=== PATIENT | female | born 1975 | race Caucasian/White ===

== ENCOUNTER → 2017-01-25 | Outpatient (CLI) | payer BC | LOC: LAB 08:49 | DX: R10.33 Periumbilical pain (principal) ==

== ENCOUNTER → 2017-03-24 | Outpatient (REF) | LOC: LAB 11:54 | DX: Z01.89 Encounter for other specified special examinations (principal) ==

== ENCOUNTER → 2017-10-24 | Outpatient (CLI) | payer BC | LOC: MAMMO 10:45 → RAD 10:45 → MAMMO 10:46 | DX: Z12.31 Encounter for screening mammogram for malignant neoplasm of breast (principal); Z13.220 Encounter for screening for lipoid disorders; R53.81 Other malaise; J45.990 Exercise induced bronchospasm ==

== ENCOUNTER → 2018-01-23 | Outpatient (CLI) | payer BC | LOC: RAD 16:01 | DX: R06.2 Wheezing (principal) ==

== ENCOUNTER → 2018-01-26 | Outpatient (CLI) | payer BC | LOC: LAB 15:41 | DX: J11.1 Influenza due to unidentified influenza virus with other respiratory manifestations (principal); Z88.1 Allergy status to other antibiotic agents; Z88.2 Allergy status to sulfonamides ==

== ENCOUNTER → 2018-04-17 | Outpatient (CLI) | payer BC ==
[~2018-04-17] VITALS: Ht 177.8 cm; Wt 77.3 kg
[~2018-04-17] MED LIST: LITHIUM CARB300 MG PO; WELLBUTRIN SR200 M1 PO
[2018-04-17 14:45] VITALS: BP 110/72
== END ==
LOC: AMSURD 14:40
DX: R00.2 Palpitations (principal)

== ENCOUNTER 2018-07-08 11:22 | Emergency (ER) | payer BC ==
[~2018-07-08 11:22] MED LIST changes: +WELLBUTRIN SR100 M4 PO; -WELLBUTRIN SR200 M1 PO
[2018-07-08] MEDS ORDERED: LIBRIUM 25M25 MG/CAP PO (11:42)
[2018-07-08 12:12] LABS: EOS # 0.1 (0.04-0.40); EOS % 2.5 % (1.0-5.0); HEMATOCRIT 32.5 % (37.0-47.0); HEMOGLOBIN 10.5 g/dL (12.5-16.0); MEAN CELL VOLUME 93 fl (78-100); MEAN CORPUSCULAR HEMOGLOBIN 30 pg (27-31); MEAN CORPUSCULAR HGB CONC 32 g/dL (33-37); MEAN PLATELET VOLUME 10.6 fl (7.4-10.4); MONO # 0.4 (0.20-0.80); NEU # 2.6 (1.40-6.50); PLATELET COUNT 251 K/mm3 (130-400); RED CELL DISTRIBUTION WIDTH 12.1 % (11.5-14.5); WHITE BLOOD COUNT 5.2 K/mm3 (4.8-10.8)
[2018-07-08 12:28] LABS: CALCIUM 8.9 mg/dL (8.4-10.2); POTASSIUM 3.8 mmol/L (3.6-5.0); TOTAL BILIRUBIN 0.5 mg/dL (0.2-1.3)
[2018-07-08 12:56] LABS: URINE APPEARANCE CLOUDY; URINE BILIRUBIN NEGATIVE (NEGATIVE); URINE BLOOD TRACE (NEGATIVE); URINE COLOR YELLOW; URINE GLUCOSE NEGATIVE (NEGATIVE); URINE KETONE NEGATIVE (NEGATIVE); URINE LEUKOCYTE ESTERASE NEGATIVE (NEGATIVE); URINE MUCUS PRESENT (NOT PRESENT); URINE NITRATE NEGATIVE (NEGATIVE); URINE PROTEIN(semi-quant) TRACE mg/dL (NEGATIVE); URINE UROBILINOGEN NORMAL (NORMAL)
[2018-07-08] MEDS ORDERED: COLACE100 M1 PO (13:47)
[2018-07-08] MEDS ORDERED: FERROUS SU325 MG/TAB PO (13:47)
[2018-07-08] MEDS ORDERED: MACROBID 100 M100 MG PO (14:02)
[2018-07-08 14:20] VITALS: BP 113/62
== END 2018-07-08 14:20 | disposition home or self-care (01) ==
LOC: ED 11:22
PROVIDERS: Physician Assistant
DX: I49.3 Ventricular premature depolarization (principal); R00.2 Palpitations; N39.0 Urinary tract infection, site not specified; F41.9 Anxiety disorder, unspecified; D64.9 Anemia, unspecified; N92.0 Excessive and frequent menstruation with regular cycle; Z79.899 Other long term (current) drug therapy; Z88.1 Allergy status to other antibiotic agents; Z88.2 Allergy status to sulfonamides

== ENCOUNTER → 2018-08-24 | Outpatient (CLI) | payer BC ==
[~2018-08-24] MED LIST changes: +COLACE100 M1 PO; +FERROUS SU325 MG/TAB PO; +LIBRIUM 25M25 MG/CAP PO; +MACROBID 100 M100 MG PO
[2018-08-24 12:47] LABS: EOS # 0.1 (0.04-0.40); EOS % 1.3 % (1.0-5.0); HEMATOCRIT 36.7 % (37.0-47.0); HEMOGLOBIN 11.9 g/dL (12.5-16.0); MEAN CELL VOLUME 93 fl (78-100); MEAN CORPUSCULAR HEMOGLOBIN 30 pg (27-31); MEAN CORPUSCULAR HGB CONC 32 g/dL (33-37); MEAN PLATELET VOLUME 10.8 fl (7.4-10.4); MONO # 0.5 (0.20-0.80); NEU # 7.6 (1.40-6.50); PLATELET COUNT 248 K/mm3 (130-400); RED BLOOD COUNT 3.94 M/mm3 (4.10-5.30); RED CELL DISTRIBUTION WIDTH 13.5 % (11.5-14.5); WHITE BLOOD COUNT 10.4 K/mm3 (4.8-10.8)
[2018-08-24 12:59] LABS: ALBUMIN 4.4 g/dL (3.5-5.0); CALCIUM 9.3 mg/dL (8.4-10.2); POTASSIUM 4.7 mmol/L (3.6-5.0); TOTAL BILIRUBIN 0.8 mg/dL (0.2-1.3); TOTAL PROTEIN 7.7 g/dL (6.3-8.2)
[2018-08-24 13:00] LABS: PH-URINE 6.5 (5.0 - 8.0); URINE APPEARANCE CLOUDY; URINE COLOR ORANGE
[2018-08-24 13:01] LABS: URINE WBC >50 /hpf (0-3)
== END ==
LOC: LAB 12:17
PROVIDERS: Family Medicine
DX: Z01.419 Encounter for gynecological examination (general) (routine) without abnormal findings (principal); N39.0 Urinary tract infection, site not specified

== ENCOUNTER → 2018-10-03 | Outpatient (CLI) | payer BC | LOC: RAD 17:37 | DX: I08.8 Other rheumatic multiple valve diseases (principal) ==

== ENCOUNTER → 2018-10-08 | Outpatient (CLI) | payer BC | LOC: RAD 14:46 | DX: R05 Cough (principal) ==

== ENCOUNTER 2019-03-24 10:11 | Emergency (ER) | payer BC ==
[~2019-03-24] VITALS: Ht 177.8 cm; Wt 76.4 kg
[2019-03-24 10:48] LABS: EOS # 0.1 (0.04-0.40); EOS % 0.7 % (1.0-5.0); HEMATOCRIT 38.2 % (37.0-47.0); HEMOGLOBIN 12.4 g/dL (12.5-16.0); LYMPH# 1.6 (1.50-4.00); MEAN CELL VOLUME 93 fl (78-100); MEAN CORPUSCULAR HEMOGLOBIN 30 pg (27-31); MEAN CORPUSCULAR HGB CONC 33 g/dL (33-37); MEAN PLATELET VOLUME 10.3 fl (7.4-10.4); MONO # 0.4 (0.20-0.80); NEU # 6.1 (1.40-6.50); PLATELET COUNT 257 K/mm3 (130-400); RED CELL DISTRIBUTION WIDTH 11.8 % (11.5-14.5); WHITE BLOOD COUNT 8.2 K/mm3 (4.8-10.8)
[2019-03-24 10:51] LABS: URINE APPEARANCE CLOUDY; URINE BILIRUBIN NEGATIVE (NEGATIVE); URINE BLOOD 250 ery/uL (NEGATIVE); URINE COLOR BROWN; URINE GLUCOSE NEGATIVE (NEGATIVE); URINE KETONE NEGATIVE (NEGATIVE); URINE NITRATE NEGATIVE (NEGATIVE); URINE PROTEIN(semi-quant) 2+ mg/dL (NEGATIVE); URINE UROBILINOGEN NORMAL (NORMAL)
[2019-03-24 10:52] LABS: URINE LEUKOCYTE ESTERASE TRACE (NEGATIVE); URINE MUCUS PRESENT (NOT PRESENT)
[2019-03-24 11:09] LABS: ALBUMIN 4.2 g/dL (3.5-5.0); CALCIUM 9.4 mg/dL (8.3-10.5); TOTAL BILIRUBIN 0.4 mg/dL (0.2-1.2); TOTAL PROTEIN 7.7 g/dL (6.4-8.3)
[2019-03-24 12:37] VITALS: BP 113/63
[2019-03-24] MEDS ORDERED: ADDERALL 30 MG30 MG PO ×2 (12:51)
[2019-03-24] MEDS ORDERED: FEXOFENADINE HY60 MG PO (12:51)
== END 2019-03-24 13:00 | disposition short-term general hospital (02) ==
LOC: ED 10:11
PROVIDERS: Nurse Practitioner Primary Care
DX: N20.0 Calculus of kidney (principal); F41.9 Anxiety disorder, unspecified; F32.9 Major depressive disorder, single episode, unspecified; Z88.2 Allergy status to sulfonamides; Z88.1 Allergy status to other antibiotic agents
CPT/HCPCS: J1885; J2405; J7030; Q9967

== ENCOUNTER → 2019-10-02 | Outpatient (CLI) | payer BC ==
[~2019-10-02] MED LIST changes: +ADDERALL 30 MG30 MG PO; +FEXOFENADINE HY60 MG PO
[2019-10-02 13:32] LABS: POTASSIUM 4.2 mmol/L (3.5-5.1)
[2019-10-02 13:33] LABS: CALCIUM 9.8 mg/dL (8.3-10.5)
== END ==
LOC: LAB 13:13
PROVIDERS: Physician Assistant
DX: M10.9 Gout, unspecified (principal)

== ENCOUNTER → 2019-10-13 | Outpatient (CLI) | payer BC | LOC: MAMMO 11:45 | DX: Z12.31 Encounter for screening mammogram for malignant neoplasm of breast (principal) ==

== ENCOUNTER → 2020-05-25 | Outpatient (CLI) | payer BC ==
[2020-05-25 11:30] LABS: EOS # 0.1 (0.04-0.40); EOS % 1.9 % (1.0-5.0); HEMATOCRIT 37.6 % (37.0-47.0); HEMOGLOBIN 12.6 g/dL (12.5-16.0); LYMPH# 2.4 (1.50-4.00); MEAN CELL VOLUME 93 fl (78-100); MEAN CORPUSCULAR HEMOGLOBIN 31 pg (27-31); MEAN CORPUSCULAR HGB CONC 34 g/dL (33-37); MEAN PLATELET VOLUME 10.1 fl (7.4-10.4); MONO # 0.6 (0.20-0.80); NEU # 3.8 (1.40-6.50); PLATELET COUNT 230 K/mm3 (130-400); RED BLOOD COUNT 4.05 M/mm3 (4.10-5.30)
[2020-05-25 11:39] LABS: POTASSIUM 4.4 mmol/L (3.5-5.1)
[2020-05-25 11:40] LABS: ALBUMIN 4.4 g/dL (3.5-5.0)
[2020-05-25 11:41] LABS: CALCIUM 9.5 mg/dL (8.3-10.5)
[2020-05-25 11:42] LABS: TOTAL PROTEIN 7.9 g/dL (6.4-8.3)
[2020-05-25 11:44] LABS: TOTAL BILIRUBIN 0.6 mg/dL (0.2-1.2)
== END ==
LOC: LAB 11:18
PROVIDERS: Family Medicine
DX: Z00.00 Encounter for general adult medical examination without abnormal findings (principal); E78.5 Hyperlipidemia, unspecified

== ENCOUNTER → 2020-08-26 | Outpatient (CLI) | payer BC | LOC: LAB 08:56 | DX: N30.01 Acute cystitis with hematuria (principal) ==

== ENCOUNTER → 2020-08-27 | Outpatient (CLI) | payer BC | LOC: LAB 09:38 | DX: R05 Cough (principal); R11.10 Vomiting, unspecified; R19.7 Diarrhea, unspecified; R53.83 Other fatigue; Z20.828 Contact with and (suspected) exposure to other viral communicable diseases ==

== ENCOUNTER → 2020-10-07 | Outpatient (CLI) | payer BC | LOC: LAB 12:24 | DX: R05 Cough (principal); R51.9 Headache, unspecified; R09.81 Nasal congestion; R09.89 Other specified symptoms and signs involving the circulatory and respiratory systems; R19.7 Diarrhea, unspecified; Z20.828 Contact with and (suspected) exposure to other viral communicable diseases ==

== ENCOUNTER → 2020-10-20 | Outpatient (CLI) | payer BC | LOC: LAB 13:53 | DX: J02.9 Acute pharyngitis, unspecified (principal); Z20.828 Contact with and (suspected) exposure to other viral communicable diseases ==

== ENCOUNTER → 2020-11-10 | Outpatient (CLI) | payer BC ==
[2020-11-10 13:56] LABS: URINE APPEARANCE CLEAR; URINE BILIRUBIN 1+ (NEGATIVE); URINE BLOOD TRACE (NEGATIVE); URINE COLOR YELLOW; URINE GLUCOSE NEGATIVE (NEGATIVE); URINE KETONE NEGATIVE (NEGATIVE); URINE LEUKOCYTE ESTERASE 1+ (NEGATIVE); URINE NITRATE POSITIVE (NEGATIVE); URINE PROTEIN(semi-quant) NEGATIVE (NEGATIVE); URINE UROBILINOGEN NORMAL (NORMAL); URINE WBC 16-30 /hpf (0-3)
[2020-11-10 13:57] LABS: URINE MUCUS PRESENT (NOT PRESENT)
== END ==
LOC: LAB 13:15
PROVIDERS: Nurse Practitioner
DX: N30.01 Acute cystitis with hematuria (principal)

== ENCOUNTER → 2020-11-16 | Outpatient (CLI) | payer BC ==
[2020-11-16 17:46] LABS: URINE APPEARANCE CLEAR; URINE BILIRUBIN NEGATIVE (NEGATIVE); URINE BLOOD NEGATIVE (NEGATIVE); URINE COLOR YELLOW; URINE GLUCOSE NEGATIVE (NEGATIVE); URINE KETONE NEGATIVE (NEGATIVE); URINE LEUKOCYTE ESTERASE NEGATIVE (NEGATIVE); URINE NITRATE NEGATIVE (NEGATIVE); URINE PROTEIN(semi-quant) NEGATIVE (NEGATIVE); URINE UROBILINOGEN NORMAL (NORMAL)
[2020-11-16 17:47] LABS: URINE MUCUS PRESENT (NOT PRESENT)
== END ==
LOC: LAB 17:12
PROVIDERS: Family Medicine
DX: N39.0 Urinary tract infection, site not specified (principal)

== ENCOUNTER → 2020-12-31 | Outpatient (CLI) | payer BC ==
[~2020-12-31] MED LIST changes: +CYCLOBENZAPRINE10 M1 PO; +DESYREL 100MG100 MG PO; +FLUTICASON0.05 MG/AC NS; +MELOXICAM15 MG PO; +SUMATRIPTAN SUC25 M2 PO; +VITAMIN D21250 MCG PO
== END ==
LOC: MAMMO 12-10 10:00
DX: Z12.31 Encounter for screening mammogram for malignant neoplasm of breast (principal)

== ENCOUNTER → 2021-01-17 | Outpatient (CLI) | payer BC ==
[2021-01-17 14:12] LABS: EOS # 0.1 (0.04-0.40); EOS % 1.8 % (1.0-5.0); HEMATOCRIT 39.3 % (37.0-47.0); HEMOGLOBIN 12.6 g/dL (12.5-16.0); LYMPH# 2.6 (1.50-4.00); MEAN CELL VOLUME 94 fl (78-100); MEAN CORPUSCULAR HEMOGLOBIN 30 pg (27-31); MEAN CORPUSCULAR HGB CONC 32 g/dL (33-37); MEAN PLATELET VOLUME 10.5 fl (7.4-10.4); MONO # 0.4 (0.20-0.80); PLATELET COUNT 234 K/mm3 (130-400); RED BLOOD COUNT 4.17 M/mm3 (4.10-5.30); RED CELL DISTRIBUTION WIDTH 11.7 % (11.5-14.5); WHITE BLOOD COUNT 7.2 K/mm3 (4.8-10.8)
[2021-01-17 14:24] LABS: ALBUMIN 4.3 g/dL (3.5-5.0); POTASSIUM 4.6 mmol/L (3.5-5.1)
[2021-01-17 14:25] LABS: CALCIUM 9.1 mg/dL (8.3-10.5)
[2021-01-17 14:27] LABS: TOTAL PROTEIN 7.8 g/dL (6.4-8.3)
[2021-01-17 14:28] LABS: TOTAL BILIRUBIN 0.5 mg/dL (0.2-1.2)
[2021-01-17 15:17] LABS: ERYTHROCYTE SEDIMENTATION RATE 8 mm/hr (0-20)
[2021-01-18 00:26] LABS: COMPLEMENT C3 100 mg/dL (83-193); COMPLEMENT-C4 18 mg/dL (15-57)
[2021-01-18 11:10] LABS: ANA SCREEN with REFLEX Negative (Negative)
== END ==
LOC: LAB 13:47
PROVIDERS: Family Medicine
DX: R53.82 Chronic fatigue, unspecified (principal)

== ENCOUNTER 2021-02-27 01:47 | Emergency (ER) | payer BC ==
[~2021-02-27 01:47] MED LIST changes: -CYCLOBENZAPRINE10 M1 PO; -DESYREL 100MG100 MG PO; -FLUTICASON0.05 MG/AC NS; -MELOXICAM15 MG PO; -SUMATRIPTAN SUC25 M2 PO; -VITAMIN D21250 MCG PO
[2021-02-27] MEDS ORDERED: CYCLOBENZAPRINE10 M1 PO (02:00)
[2021-02-27] MEDS ORDERED: SUMATRIPTAN SUC25 M2 PO (02:00)
[2021-02-27] MEDS ORDERED: FLUTICASON0.05 MG/AC NS (02:00)
[2021-02-27] MEDS ORDERED: MELOXICAM15 MG PO (02:01)
[2021-02-27] MEDS ORDERED: DESYREL 100MG100 MG PO (02:01)
[2021-02-27] MEDS ORDERED: VITAMIN D21250 MCG PO (02:01)
[2021-02-27 03:14] LABS: BASO # 0.03 (0.02-0.10); EOS # 0.05 (0.04-0.40); EOS % 0.6 % (1.0-5.0); HEMATOCRIT 32.9 % (37.0-47.0); HEMOGLOBIN 11.3 g/dL (12.5-16.0); LYMPH# 1.77 (1.50-4.00); MEAN CELL VOLUME 92 fl (78-100); MEAN CORPUSCULAR HEMOGLOBIN 32 pg (27-31); MEAN CORPUSCULAR HGB CONC 34 g/dL (33-37); MEAN PLATELET VOLUME 10.5 fl (7.4-10.4); MONO # 0.45 (0.20-0.80); NEU # 5.77 (1.40-6.50); PLATELET COUNT 219 K/mm3 (130-400); RED BLOOD COUNT 3.59 M/mm3 (4.10-5.30); WHITE BLOOD COUNT 8.1 K/mm3 (4.8-10.8)
[2021-02-27 03:21] LABS: POTASSIUM 3.9 mmol/L (3.5-5.1)
[2021-02-27 03:24] LABS: TOTAL PROTEIN 7.3 g/dL (6.4-8.3)
[2021-02-27 03:26] LABS: TOTAL BILIRUBIN 0.2 mg/dL (0.2-1.2)
[2021-02-27 03:32] LABS: URINE APPEARANCE HAZY; URINE COLOR YELLOW
[2021-02-27 03:33] LABS: URINE BILIRUBIN NEGATIVE (NEGATIVE); URINE BLOOD 50 ery/uL (NEGATIVE); URINE GLUCOSE NEGATIVE (NEGATIVE); URINE KETONE 1+ (NEGATIVE); URINE LEUKOCYTE ESTERASE TRACE (NEGATIVE); URINE NITRATE NEGATIVE (NEGATIVE); URINE PROTEIN(semi-quant) NEGATIVE (NEGATIVE); URINE UROBILINOGEN NORMAL (NORMAL)
[2021-02-27 03:34] LABS: URINE MUCUS PRESENT (NOT PRESENT)
[2021-02-27 04:04] VITALS: BP 109/59
== END 2021-02-27 04:04 | disposition home or self-care (01) ==
LOC: ED 01:47
PROVIDERS: Family Medicine
DX: F12.10 Cannabis abuse, uncomplicated (principal); F10.10 Alcohol abuse, uncomplicated; F41.9 Anxiety disorder, unspecified; F32.9 Major depressive disorder, single episode, unspecified; F90.9 Attention-deficit hyperactivity disorder, unspecified type
CPT/HCPCS: J7030

== ENCOUNTER → 2021-03-28 | Outpatient (CLI) | payer BC ==
[2021-02-27 04:04] VITALS: BP 109/59
[~2021-03-28] MED LIST changes: +CYCLOBENZAPRINE10 M1 PO; +DESYREL 100MG100 MG PO; +FLUTICASON0.05 MG/AC NS; +MELOXICAM15 MG PO; +SUMATRIPTAN SUC25 M2 PO; +VITAMIN D21250 MCG PO
[2021-03-28 09:48] LABS: BASO # 0.03 (0.02-0.10); EOS # 0.16 (0.04-0.40); EOS % 2.9 % (1.0-5.0); HEMATOCRIT 36.6 % (37.0-47.0); HEMOGLOBIN 12.2 g/dL (12.5-16.0); LYMPH# 2.04 (1.50-4.00); MEAN CELL VOLUME 92 fl (78-100); MEAN CORPUSCULAR HEMOGLOBIN 31 pg (27-31); MEAN CORPUSCULAR HGB CONC 33 g/dL (33-37); MEAN PLATELET VOLUME 10.3 fl (7.4-10.4); MONO # 0.32 (0.20-0.80); NEU # 3.01 (1.40-6.50); PLATELET COUNT 214 K/mm3 (130-400); RED BLOOD COUNT 3.96 M/mm3 (4.10-5.30); RED CELL DISTRIBUTION WIDTH 12.1 % (11.5-14.5); WHITE BLOOD COUNT 5.6 K/mm3 (4.8-10.8)
[2021-03-28 09:58] LABS: ALBUMIN 4.2 g/dL (3.5-5.0)
[2021-03-28 10:00] LABS: TOTAL PROTEIN 7.6 g/dL (6.4-8.3)
[2021-03-28 10:02] LABS: TOTAL BILIRUBIN 0.9 mg/dL (0.2-1.2)
== END ==
LOC: LAB 09:35
PROVIDERS: Family Medicine
DX: Z00.00 Encounter for general adult medical examination without abnormal findings (principal); E78.5 Hyperlipidemia, unspecified; E55.9 Vitamin D deficiency, unspecified; M10.9 Gout, unspecified; R53.83 Other fatigue

== ENCOUNTER 2021-11-16 17:33 | Emergency (ER) | payer BC ==
[~2021-11-16] VITALS: Ht 177.8 cm; Wt 82.7 kg
[2021-11-16 18:35] LABS: BASO # 0.03 K/mm3 (0.02-0.10); EOS # 0.18 K/mm3 (0.04-0.40); EOS % 2.3 % (1.0-5.0); HEMATOCRIT 34.5 % (37.0-47.0); HEMOGLOBIN 11.6 g/dL (12.5-16.0); LYMPH# 2.19 K/mm3 (1.50-4.00); MEAN CELL VOLUME 93 fl (78-100); MEAN CORPUSCULAR HEMOGLOBIN 31 pg (27-31); MEAN CORPUSCULAR HGB CONC 34 g/dL (33-37); MONO # 0.42 K/mm3 (0.20-0.80); NEU # 4.99 K/mm3 (1.40-6.50); PLATELET COUNT 233 K/mm3 (130-400); RED BLOOD COUNT 3.72 M/mm3 (4.10-5.30); RED CELL DISTRIBUTION WIDTH 12.2 % (11.5-14.5); WHITE BLOOD COUNT 7.8 K/mm3 (4.8-10.8)
[2021-11-16 18:46] LABS: ALBUMIN 4.1 g/dL (3.5-5.0); POTASSIUM 3.7 mmol/L (3.5-5.1)
[2021-11-16 18:47] LABS: CALCIUM 9.6 mg/dL (8.3-10.5)
[2021-11-16 18:48] LABS: TOTAL PROTEIN 7.3 g/dL (6.4-8.3)
[2021-11-16 18:50] LABS: TOTAL BILIRUBIN 0.6 mg/dL (0.2-1.2)
[2021-11-16 18:55] LABS: MAGNESIUM 1.77 mg/dL (1.60-2.60)
[2021-11-16 19:36] VITALS: BP 132/86
== END 2021-11-16 19:36 | disposition home or self-care (01) ==
LOC: ED 17:33
PROVIDERS: Physician Assistant
DX: I10 Essential (primary) hypertension (principal); M79.89 Other specified soft tissue disorders; F90.9 Attention-deficit hyperactivity disorder, unspecified type; J45.909 Unspecified asthma, uncomplicated; F41.1 Generalized anxiety disorder; F43.10 Post-traumatic stress disorder, unspecified; F32.9 Major depressive disorder, single episode, unspecified; Z86.16 Personal history of COVID-19; Z79.899 Other long term (current) drug therapy

== ENCOUNTER → 2022-02-03 | Outpatient (CLI) | payer BC | LOC: MAMMO 09:00 | DX: Z12.31 Encounter for screening mammogram for malignant neoplasm of breast (principal) ==

== ENCOUNTER → 2022-03-22 | Outpatient (CLI) | payer BC ==
[2022-03-22 13:32] LABS: URINE APPEARANCE CLEAR; URINE COLOR YELLOW
[2022-03-22 13:33] LABS: URINE BILIRUBIN NEGATIVE (NEGATIVE); URINE BLOOD NEGATIVE (NEGATIVE); URINE GLUCOSE NEGATIVE (NEGATIVE); URINE KETONE NEGATIVE (NEGATIVE); URINE LEUKOCYTE ESTERASE TRACE (NEGATIVE); URINE NITRATE POSITIVE (NEGATIVE); URINE PROTEIN(semi-quant) 1+ (NEGATIVE); URINE UROBILINOGEN NORMAL (NORMAL)
== END ==
LOC: LAB 13:08
PROVIDERS: Family Medicine
DX: N39.0 Urinary tract infection, site not specified (principal)

== ENCOUNTER → 2022-04-07 | Outpatient (CLI) | payer BC ==
[2022-04-07 10:30] LABS: URINE WBC 0 /hpf (0-3)
[2022-04-07 11:18] LABS: BASO # 0.05 K/mm3 (0.02-0.10); EOS # 0.21 K/mm3 (0.04-0.40); EOS % 2.7 % (1.0-5.0); HEMOGLOBIN 12.1 g/dL (12.5-16.0); LYMPH# 2.69 K/mm3 (1.50-4.00); MEAN CELL VOLUME 94 fl (78-100); MEAN CORPUSCULAR HEMOGLOBIN 31 pg (27-31); MEAN CORPUSCULAR HGB CONC 33 g/dL (33-37); MEAN PLATELET VOLUME 9.9 fl (7.4-10.4); MONO # 0.55 K/mm3 (0.20-0.80); NEU # 4.39 K/mm3 (1.40-6.50); PLATELET COUNT 261 K/mm3 (130-400); RED BLOOD COUNT 3.94 M/mm3 (4.10-5.30); WHITE BLOOD COUNT 7.9 K/mm3 (4.8-10.8)
[2022-04-07 11:31] LABS: ALBUMIN 4.3 g/dL (3.5-5.0); POTASSIUM 4.2 mmol/L (3.5-5.1)
[2022-04-07 11:32] LABS: CALCIUM 9.2 mg/dL (8.3-10.5)
[2022-04-07 11:34] LABS: TOTAL PROTEIN 7.6 g/dL (6.4-8.3)
[2022-04-07 11:35] LABS: TOTAL BILIRUBIN 0.7 mg/dL (0.2-1.2)
[2022-04-07 11:49] LABS: URINE APPEARANCE CLEAR; URINE BILIRUBIN NEGATIVE (NEGATIVE); URINE BLOOD NEGATIVE (NEGATIVE); URINE COLOR YELLOW; URINE GLUCOSE NEGATIVE (NEGATIVE); URINE KETONE NEGATIVE (NEGATIVE); URINE LEUKOCYTE ESTERASE NEGATIVE (NEGATIVE); URINE NITRATE NEGATIVE (NEGATIVE); URINE PROTEIN(semi-quant) NEGATIVE (NEGATIVE); URINE UROBILINOGEN NORMAL (NORMAL)
== END ==
LOC: LAB 10:00
PROVIDERS: Family Medicine
DX: N39.0 Urinary tract infection, site not specified (principal)

== ENCOUNTER → 2022-06-12 | Outpatient (CLI) | payer BC ==
[2022-06-12 13:17] LABS: BASO # 0.03 K/mm3 (0.02-0.10); EOS # 0.15 K/mm3 (0.04-0.40); EOS % 1.6 % (1.0-5.0); HEMATOCRIT 36.8 % (37.0-47.0); HEMOGLOBIN 12.1 g/dL (12.5-16.0); LYMPH# 2.12 K/mm3 (1.50-4.00); MEAN CELL VOLUME 94 fl (78-100); MEAN CORPUSCULAR HEMOGLOBIN 31 pg (27-31); MEAN CORPUSCULAR HGB CONC 33 g/dL (33-37); MEAN PLATELET VOLUME 9.9 fl (7.4-10.4); NEU # 6.32 K/mm3 (1.40-6.50); PLATELET COUNT 238 K/mm3 (130-400); RED CELL DISTRIBUTION WIDTH 11.7 % (11.5-14.5); WHITE BLOOD COUNT 9.1 K/mm3 (4.8-10.8)
[2022-06-12 13:24] LABS: ALBUMIN 4.2 g/dL (3.5-5.0); POTASSIUM 3.9 mmol/L (3.5-5.1)
[2022-06-12 13:25] LABS: CALCIUM 9.2 mg/dL (8.3-10.5)
[2022-06-12 13:26] LABS: TOTAL PROTEIN 7.3 g/dL (6.4-8.3)
[2022-06-12 13:28] LABS: TOTAL BILIRUBIN 0.6 mg/dL (0.2-1.2)
[2022-06-12 13:35] LABS: URINE APPEARANCE HAZY; URINE BILIRUBIN NEGATIVE (NEGATIVE); URINE BLOOD 250 ery/uL (NEGATIVE); URINE COLOR DARK YELLOW; URINE GLUCOSE NEGATIVE (NEGATIVE); URINE KETONE NEGATIVE (NEGATIVE); URINE LEUKOCYTE ESTERASE NEGATIVE (NEGATIVE); URINE NITRATE NEGATIVE (NEGATIVE); URINE PROTEIN(semi-quant) TRACE (NEGATIVE); URINE UROBILINOGEN NORMAL (NORMAL)
[2022-06-12 13:36] LABS: URINE MUCUS PRESENT (NOT PRESENT)
[2022-06-12 14:53] LABS: ERYTHROCYTE SEDIMENTATION RATE 33 mm/hr (0-20)
== END ==
LOC: LAB 13:00
PROVIDERS: Nurse Practitioner Family
DX: R10.9 Unspecified abdominal pain (principal)
CPT/HCPCS: Q9967

== ENCOUNTER → 2022-12-21 | Outpatient (CLI) | payer BC ==
[2022-12-21 18:06] LABS: PH-URINE 5.5 (5.0 - 8.0); URINE APPEARANCE CLEAR; URINE BILIRUBIN NEGATIVE (NEGATIVE); URINE BLOOD 50 ery/uL (NEGATIVE); URINE COLOR LIGHT YELLOW; URINE GLUCOSE NEGATIVE (NEGATIVE); URINE KETONE NEGATIVE (NEGATIVE); URINE LEUKOCYTE ESTERASE NEGATIVE (NEGATIVE); URINE NITRATE NEGATIVE (NEGATIVE); URINE PROTEIN(semi-quant) TRACE (NEGATIVE); URINE UROBILINOGEN NORMAL (NORMAL); URINE WBC 0-1 /hpf (0-3)
== END ==
LOC: LAB 16:50
PROVIDERS: Nurse Practitioner Family
DX: R30.9 Painful micturition, unspecified (principal)

== ENCOUNTER → 2023-08-11 | Outpatient (CLI) | payer BC | LOC: RAD 13:10 | DX: S89.92XA Unspecified injury of left lower leg, initial encounter (principal); X58.XXXA Exposure to other specified factors, initial encounter ==

== ENCOUNTER → 2023-12-03 | Outpatient (CLI) | payer BC ==
[2023-12-03 14:14] LABS: BASO # 0.04 K/mm3 (0.02-0.10); EOS # 0.13 K/mm3 (0.04-0.40); EOS % 1.5 % (1.0-5.0); HEMATOCRIT 37.3 % (37.0-47.0); HEMOGLOBIN 12.3 g/dL (12.5-16.0); LYMPH# 2.67 K/mm3 (1.50-4.00); MEAN CELL VOLUME 93 fl (78-100); MEAN CORPUSCULAR HEMOGLOBIN 31 pg (27-31); MEAN CORPUSCULAR HGB CONC 33 g/dL (33-37); MEAN PLATELET VOLUME 9.9 fl (7.4-10.4); NEU # 5.33 K/mm3 (1.40-6.50); PLATELET COUNT 262 K/mm3 (130-400); RED CELL DISTRIBUTION WIDTH 11.9 % (11.5-14.5); WHITE BLOOD COUNT 8.6 K/mm3 (4.8-10.8)
[2023-12-03 14:22] LABS: ALBUMIN 4.4 g/dL (3.5-5.0)
[2023-12-03 14:23] LABS: CALCIUM 9.1 mg/dL (8.3-10.5)
[2023-12-03 14:25] LABS: TOTAL PROTEIN 7.5 g/dL (6.4-8.3)
[2023-12-03 14:26] LABS: TOTAL BILIRUBIN 0.5 mg/dL (0.2-1.2)
== END ==
LOC: LAB 13:59
PROVIDERS: Physician Assistant
DX: R53.83 Other fatigue (principal)

== ENCOUNTER 2024-03-04 12:56 | Outpatient (RCR) | payer BC | END 2024-03-21 | disposition home or self-care (01) | LOC: PT | DX: M25.562 Pain in left knee (principal) ==

== ENCOUNTER → 2024-04-22 | Outpatient (CLI) | payer BC ==
[2024-04-22 11:23] LABS: ALBUMIN 4.4 g/dL (3.5-5.0); BASO # 0.03 K/mm3 (0.02-0.10); EOS # 0.17 K/mm3 (0.04-0.40); EOS % 3.1 % (1.0-5.0); HEMATOCRIT 37.7 % (37.0-47.0); HEMOGLOBIN 12.6 g/dL (12.5-16.0); LYMPH# 2.17 K/mm3 (1.50-4.00); MEAN CELL VOLUME 94 fl (78-100); MEAN CORPUSCULAR HEMOGLOBIN 31 pg (27-31); MEAN CORPUSCULAR HGB CONC 33 g/dL (33-37); MEAN PLATELET VOLUME 9.9 fl (7.4-10.4); MONO # 0.34 K/mm3 (0.20-0.80); NEU # 2.83 K/mm3 (1.40-6.50); PLATELET COUNT 262 K/mm3 (130-400); RED BLOOD COUNT 4.01 M/mm3 (4.10-5.30); RED CELL DISTRIBUTION WIDTH 11.5 % (11.5-14.5); WHITE BLOOD COUNT 5.6 K/mm3 (4.8-10.8)
[2024-04-22 11:24] LABS: CALCIUM 9.6 mg/dL (8.3-10.5)
[2024-04-22 11:26] LABS: TOTAL PROTEIN 7.3 g/dL (6.4-8.3)
[2024-04-22 11:27] LABS: TOTAL BILIRUBIN 0.7 mg/dL (0.2-1.2)
== END ==
LOC: LAB 11:02
PROVIDERS: Family Medicine
DX: E78.5 Hyperlipidemia, unspecified (principal); E55.9 Vitamin D deficiency, unspecified; I10 Essential (primary) hypertension

== ENCOUNTER → 2024-05-01 | Outpatient (CLI) | payer BC | LOC: MAMMO 10:20 | DX: Z12.31 Encounter for screening mammogram for malignant neoplasm of breast (principal); N63.32 Unspecified lump in axillary tail of the left breast ==

== ENCOUNTER → 2024-05-13 | Outpatient (CLI) | payer BC | LOC: RAD 08:38 | DX: R92.8 Other abnormal and inconclusive findings on diagnostic imaging of breast (principal) | CPT/HCPCS: 15989; 15990; A4648 ==